=== PATIENT | male | born 1950 | race Hispanic/Latino ===

== ENCOUNTER 2020-07-30 12:52 | Emergency (ER) | payer OTHER ==
[2020-07-30] MEDS ORDERED: AZITHROMYCIN 250 MG TABLET PO ONE (13:04)
[2020-07-30] MEDS ORDERED: ACETAMINOPHEN WITH CODEINE 1 TAB TAB ONE (13:04)
[2020-07-30] MEDS ORDERED: CEFTRIAXONE 1G VIAL ONE (13:04)
[2020-07-30] MEDS ORDERED: ALBUTEROL INHALER 90MCG/INH IH ONE (13:04)
[2020-07-30 13:41] LABS: BASOPHILS % (AUTO) 0.3 % (0.0-5.0); EOSINOPHILS % (AUTO) 0.3 % (0.0-8.0); HEMATOCRIT 45.3 % (42-54); LYMPHOCYTES % (AUTO) 17.5 % (21.0-51.0); MEAN CORPUSCULAR HEMOGLOBIN 32.4 pg (27.0-33.0); MEAN CORPUSCULAR VOLUME 95.4 fL (79-99); MONOCYTES % (AUTO) 9.2 % (3.0-13.0); NEUTROPHILS % (AUTO) 72.3 % (40.0-77.0); PLATELET COUNT (AUTO) 181 K/uL (130-400); RED BLOOD CELL COUNT(AUTO) 4.75 MIL/uL (4.50-6.20); RED CELL DISTRIBUTION WIDTH 11.9 % (11.0-15.5); WHITE BLOOD COUNT (AUTO) 7.1 K/uL (4.8-10.8)
[2020-07-30 13:46] LABS: ABG BASE EXCESS 0.4 mmol/L (-2.0-3.0); ABG HCO3 25.4 mmol/L (21.0-28.0); ABG OXYGEN SATURATION 95.3 % (95.0-99.0); ABG PCO2 42 mmHg (35-48)
[2020-07-30 13:48] LABS: POTASSIUM 4.1 mmol/L (3.5-5.1)
[2020-07-30 13:51] LABS: INR 1.08 (0.85-1.15); PROTHROMBIN TIME 11.5 SEC (9.6-11.6)
[2020-07-30 13:53] LABS: ALBUMIN 3.8 g/dL (3.5-5.0); BILIRUBIN,TOTAL 0.2 mg/dL (0.2-1.0); PARTIAL THROMBOPLASTIN TIME 29.3 SEC (26.3-35.5); TOTAL PROTEIN, SERUM 7.4 g/dL (6.0-8.3)
[2020-07-30 14:18] LABS: B-TYPE NATRIURETIC PEPTIDE 92 pg/mL (0-100)
== END 2020-07-30 15:05 | disposition home or self-care (01) ==
LOC: EDH 12:52
DX: U07.1 COVID-19 (principal); Z72.0 Tobacco use
CPT/HCPCS: 36415; 36600; 71045; 80053; 82550; 82803; 83605; 83880; 84145; 84484; 85025; 85610; 85730; 87040 ×2; 87426; 93005; 96365; 99285; J0696

== ENCOUNTER 2020-08-05 13:03 | Inpatient (IN) | payer OTHER ==
[~2020-08-05] VITALS: Ht 172.7 cm; Wt 75.2 kg
[2020-08-05 13:47] LABS: ABG BASE EXCESS -1.3 mmol/L (-2.0-3.0); ABG HCO3 22.7 mmol/L (21.0-28.0); ABG OXYGEN SATURATION 97.1 % (95.0-99.0); ABG PCO2 36 mmHg (35-48)
[2020-08-05] MEDS ORDERED: CEFTRIAXONE 1G VIAL ONE (13:50)
[2020-08-05] MEDS ORDERED: DEXAMETHASONE SOD PHOSPHATE 10MG/ML 1ML VIAL ONE (13:50)
[2020-08-05] MEDS ORDERED: 0.9%NACL 1000ML 1,000 ML IV ONE (13:51)
[2020-08-05 13:58] LABS: BASOPHILS % (AUTO) 0.1 % (0.0-5.0); HEMATOCRIT 47.3 % (42-54); MEAN CORPUSCULAR HGB CONC 33.8 g/dL (32.0-36.0); MEAN CORPUSCULAR VOLUME 94.6 fL (79-99); MONOCYTES % (AUTO) 2.2 % (3.0-13.0); NEUTROPHILS % (AUTO) 92.1 % (40.0-77.0); PLATELET COUNT (AUTO) 165 K/uL (130-400); WHITE BLOOD COUNT (AUTO) 13.8 K/uL (4.8-10.8)
[2020-08-05 14:12] LABS: ALBUMIN 2.9 g/dL (3.5-5.0); BILIRUBIN,TOTAL 0.6 mg/dL (0.2-1.0); CREATININE 1.6 mg/dL (0.5-1.5); POTASSIUM 3.6 mmol/L (3.5-5.1); TOTAL PROTEIN, SERUM 7.7 g/dL (6.0-8.3)
[2020-08-05 14:51] LABS: B-TYPE NATRIURETIC PEPTIDE 706 pg/mL (0-100)
[2020-08-05 16:29] LABS: POTASSIUM 3.7 mmol/L (3.5-5.1)
[2020-08-05] MEDS ORDERED: IOHEXOL-350 75 ML VIAL IV ONE (16:55)
[2020-08-05] MEDS ORDERED: CEFTRIAXONE 1G VIAL IVP SCH (18:15)
[2020-08-05] MEDS ORDERED: DEXTROSE 50%-WATER 50 ML DISP.SYRIN IV PRN (18:15)
[2020-08-05] MEDS ORDERED: GLUCAGON 1MG KIT 1 MG ML IM PRN (18:15)
[2020-08-05] MEDS ORDERED: ASPIRIN 325 MG TABLET ONE (18:43)
[2020-08-05] MEDS: INSULIN R PO SS1 SQ SCH (21:00)
[2020-08-05] MEDS: FUROSEMIDE 20MG VIAL IVP SCH (21:00)
[2020-08-05] MEDS ORDERED: AZITHROMYCIN 500MG+NS 250ML 250 ML IV ONE (21:23)
[2020-08-05] MEDS ORDERED: INSULIN HUMULIN R 100 UNIT/ML 3ML ONE (22:03)
[2020-08-06] MEDS: INSULIN R PO SS1 SQ SCH ×4 (07:30→21:00)
[2020-08-06] MEDS ORDERED: FUROSEMIDE 20MG VIAL ONE ×2 (08:38→21:14)
[2020-08-06] MEDS: FUROSEMIDE 20MG VIAL IVP SCH ×2 (09:00→21:00)
[2020-08-06] MEDS: AZITHROMYCIN 500MG+NS 250ML 250 ML IV SCH (09:00)
[2020-08-06] MEDS: KCL 20 MEQ ERTAB PO SCH (12:30)
[2020-08-06] MEDS: CEFTRIAXONE 1G VIAL IVP SCH (13:00)
[2020-08-06] MEDS ORDERED: ALBUTEROL INHALER 90MCG/INH IH PRN (13:45)
[2020-08-06] MEDS ORDERED: ENOXAPARIN SODIUM 40 MG/0.4 ML SYRINGE SQ SCH (14:00)
[2020-08-06] MEDS ORDERED: POTASSIUM CHLORIDE 10% ELIXIR 20 MEQ/15 ML UDCUP ONE (17:07)
[2020-08-06] MEDS ORDERED: ENOXAPARIN SODIUM 40 MG/0.4 ML SYRINGE SQ ONE (17:08)
[2020-08-06] MEDS ORDERED: INSULIN HUMULIN R 100 UNIT/ML 3ML ONE (21:14)
[2020-08-07 04:54] LABS: HEMATOCRIT 37.6 % (42-54); MEAN CORPUSCULAR HEMOGLOBIN 29.8 pg (27.0-33.0); MEAN CORPUSCULAR VOLUME 87.6 fL (79-99); PLATELET COUNT (AUTO) 312 K/uL (130-400); RED BLOOD CELL COUNT(AUTO) 4.29 MIL/uL (4.50-6.20); WHITE BLOOD COUNT (AUTO) 5.7 K/uL (4.8-10.8)
[2020-08-07 05:22] LABS: CARBON DIOXIDE 25 mmol/L (21-32); CHLORIDE 106 mmol/L (101-111); CREATINE KINASE, TOTAL 76 U/L (21-232); CREATININE 1.1 mg/dL (0.5-1.5); GLOMERULAR FILTR. RATE CALC 70 mL/min (>60); GLUCOSE,RANDOM 89 mg/dL (70-105); MYOGLOBIN 50 ng/mL (10-92); PHOSPHORUS 3.2 mg/dL (2.5-4.9); POTASSIUM 3.9 mmol/L (3.5-5.1); SODIUM SERUM 140 mmol/L (136-145); TROPONIN I < 0.04 ng/mL (0.00-0.06); UREA NITROGEN, BLOOD 16 mg/dL (7-18)
[2020-08-07 06:08] LABS: BAND NEUTROPHILS % (MANUAL) 7 % (0-2); EOSINOPHILS % (MANUAL) 3 % (1-6); LYMPHOCYTES % (MANUAL) 34 % (22-44); MAN.DIFF COMMENT-IMPRESSION MANUAL DIFFERENTIAL; METAMYELOCYTES % 1 % (0-0); MONOCYTES % (MANUAL) 8 % (2-9); REACTIVE LYMPHOCYTES 3 % (0-0); SEGMENTED NEUTROPHILS % 44 % (40-70)
[2020-08-07 06:09] LABS: PLATELET MORPHOLOGY COMMENT ADEQUATE
[2020-08-07] MEDS: INSULIN R PO SS1 SQ SCH ×4 (07:30→21:00)
[2020-08-07] MEDS: FUROSEMIDE 20MG VIAL IVP SCH ×2 (09:00→21:00)
[2020-08-07] MEDS: DEXAMETHASONE 4 MG TAB PO SCH (09:00)
[2020-08-07] MEDS: AZITHROMYCIN 500MG+NS 250ML 250 ML IV SCH (09:00)
[2020-08-07] MEDS: ENOXAPARIN SODIUM 40 MG/0.4 ML SYRINGE SQ SCH (09:00)
[2020-08-07] MEDS ORDERED: DEXAMETHASONE 4 MG TAB ONE (09:03)
[2020-08-07] MEDS ORDERED: FUROSEMIDE 20MG VIAL ONE ×2 (09:03→20:55)
[2020-08-07] MEDS ORDERED: AZITHROMYCIN 500MG+NS 250ML 250 ML IV ONE (09:03)
[2020-08-07] MEDS ORDERED: POTASSIUM CHLORIDE 10% ELIXIR 20 MEQ/15 ML UDCUP ONE (09:03)
[2020-08-07] MEDS ORDERED: ENOXAPARIN SODIUM 40 MG/0.4 ML SYRINGE SQ ONE (09:03)
[2020-08-07] MEDS: KCL 20 MEQ ERTAB PO SCH (12:30)
[2020-08-07] MEDS: CEFTRIAXONE 1G VIAL IVP SCH (13:00)
[2020-08-07] MEDS ORDERED: CEFTRIAXONE 1G VIAL ONE (16:54)
[2020-08-07] MEDS ORDERED: INSULIN HUMULIN R 100 UNIT/ML 3ML ONE (21:01)
[2020-08-08 00:30] VITALS: BP 166/89
[2020-08-08 04:00] VITALS: BP 160/85
[2020-08-08] MEDS ORDERED: AMLODIPINE 5 MG TAB ONE (05:43)
[2020-08-08] MEDS ORDERED: AMLODIPINE 5 MG TAB PO SCH (05:45)
[2020-08-08] MEDS: AMLODIPINE 5 MG TAB PO SCH (05:59)
[2020-08-08] MEDS: INSULIN R PO SS1 SQ SCH ×4 (06:35→20:58)
[2020-08-08 09:03] VITALS: BP 139/76
[2020-08-08] MEDS: AZITHROMYCIN 500MG+NS 250ML 250 ML IV SCH (10:27)
[2020-08-08] MEDS: FUROSEMIDE 20MG VIAL IVP SCH ×2 (10:27→20:58)
[2020-08-08] MEDS: ENOXAPARIN SODIUM 40 MG/0.4 ML SYRINGE SQ SCH (10:28)
[2020-08-08] MEDS: DEXAMETHASONE 4 MG TAB PO SCH (10:28)
[2020-08-08 11:47] VITALS: BP 134/73
[2020-08-08] MEDS: CEFTRIAXONE 1G VIAL IVP SCH (12:34)
[2020-08-08] MEDS: KCL 20 MEQ ERTAB PO SCH (12:35)
[2020-08-08 15:36] VITALS: BP 144/86
[2020-08-08 20:08] VITALS: BP 141/85
[2020-08-08] MEDS: METOPROLOL TARTRATE 25 MG TAB PO SCH (20:57)
[2020-08-09] VITALS (7 sets, daily range): BP systolic 130–175; BP diastolic 77–89
[2020-08-09] MEDS: AMLODIPINE 5 MG TAB PO SCH (04:21)
[2020-08-09] MEDS: INSULIN R PO SS1 SQ SCH ×4 (06:05→20:21)
[2020-08-09] MEDS: AZITHROMYCIN 500MG+NS 250ML 250 ML IV SCH (09:47)
[2020-08-09] MEDS: FUROSEMIDE 20MG VIAL IVP SCH ×2 (09:47→20:16)
[2020-08-09] MEDS: METOPROLOL TARTRATE 25 MG TAB PO SCH ×2 (09:47→20:15)
[2020-08-09] MEDS: ENOXAPARIN SODIUM 40 MG/0.4 ML SYRINGE SQ SCH (09:48)
[2020-08-09] MEDS: DEXAMETHASONE 4 MG TAB PO SCH (09:48)
[2020-08-09] MEDS: CEFTRIAXONE 1G VIAL IVP SCH (12:14)
[2020-08-09] MEDS: KCL 20 MEQ ERTAB PO SCH (12:14)
[2020-08-10] VITALS: BP 127/72
[2020-08-10 03:55] VITALS: BP 140/86
[2020-08-10 04:32] LABS: HEMATOCRIT 44.2 % (42-54); MEAN CORPUSCULAR HEMOGLOBIN 31.8 pg (27.0-33.0); MEAN CORPUSCULAR HGB CONC 33.7 g/dL (32.0-36.0); MEAN CORPUSCULAR VOLUME 94.2 fL (79-99); PLATELET COUNT (AUTO) 179 K/uL (130-400); RED BLOOD CELL COUNT(AUTO) 4.69 MIL/uL (4.50-6.20); RED CELL DISTRIBUTION WIDTH 11.9 % (11.0-15.5); WHITE BLOOD COUNT (AUTO) 12.2 K/uL (4.8-10.8)
[2020-08-10 04:47] LABS: CREATININE 0.8 mg/dL (0.5-1.5); POTASSIUM 4.7 mmol/L (3.5-5.1)
[2020-08-10 05:19] LABS: BAND NEUTROPHILS % (MANUAL) 2 % (0-2); LYMPHOCYTES % (MANUAL) 2 % (22-44); MAN.DIFF COMMENT-IMPRESSION MANUAL DIFFERENTIAL; MONOCYTES % (MANUAL) 4 % (2-9); SEGMENTED NEUTROPHILS % 92 % (40-70)
[2020-08-10] MEDS: AMLODIPINE 5 MG TAB PO SCH (06:15)
[2020-08-10] MEDS: INSULIN R PO SS1 SQ SCH ×4 (06:15→20:45)
[2020-08-10 08:00] VITALS: BP 142/78
[2020-08-10] MEDS: AZITHROMYCIN 500MG+NS 250ML 250 ML IV SCH (09:41)
[2020-08-10] MEDS: FUROSEMIDE 20MG VIAL IVP SCH ×2 (09:45→20:31)
[2020-08-10] MEDS: DEXAMETHASONE 4 MG TAB PO SCH (09:50)
[2020-08-10] MEDS: METOPROLOL TARTRATE 25 MG TAB PO SCH ×2 (09:50→20:31)
[2020-08-10] MEDS: ENOXAPARIN SODIUM 40 MG/0.4 ML SYRINGE SQ SCH (09:51)
[2020-08-10 12:00] VITALS: BP 127/66
[2020-08-10] MEDS: KCL 20 MEQ ERTAB PO SCH (12:30)
[2020-08-10] MEDS: CEFTRIAXONE 1G VIAL IVP SCH (13:58)
[2020-08-10 16:00] VITALS: BP 136/78
[2020-08-10 20:00] VITALS: BP 123/69
[2020-08-11] VITALS (16 sets, daily range): BP systolic 117–154; BP diastolic 67–77
[2020-08-11] MEDS: AMLODIPINE 5 MG TAB PO SCH (05:52)
[2020-08-11] MEDS: INSULIN R PO SS1 SQ SCH ×4 (05:58→21:00)
[2020-08-11] MEDS: AZITHROMYCIN 500MG+NS 250ML 250 ML IV SCH (09:56)
[2020-08-11] MEDS: ENOXAPARIN SODIUM 40 MG/0.4 ML SYRINGE SQ SCH (09:56)
[2020-08-11] MEDS: DEXAMETHASONE 4 MG TAB PO SCH (09:57)
[2020-08-11] MEDS: FUROSEMIDE 20MG VIAL IVP SCH ×2 (09:57→21:55)
[2020-08-11] MEDS: METOPROLOL TARTRATE 25 MG TAB PO SCH ×2 (09:58→21:55)
[2020-08-11] MEDS: KCL 20 MEQ ERTAB PO SCH (12:27)
[2020-08-11] MEDS: CEFTRIAXONE 1G VIAL IVP SCH (16:34)
[2020-08-12] VITALS: BP 123/71
[2020-08-12 04:00] VITALS: BP 142/89
[2020-08-12] MEDS: AMLODIPINE 5 MG TAB PO SCH (06:12)
[2020-08-12] MEDS: INSULIN R PO SS1 SQ SCH ×4 (06:52→20:40)
[2020-08-12] MEDS: FUROSEMIDE 20MG VIAL IVP SCH ×2 (09:13→20:40)
[2020-08-12] MEDS: AZITHROMYCIN 500MG+NS 250ML 250 ML IV SCH (09:13)
[2020-08-12] MEDS: DEXAMETHASONE 4 MG TAB PO SCH (09:15)
[2020-08-12] MEDS: ENOXAPARIN SODIUM 40 MG/0.4 ML SYRINGE SQ SCH (09:16)
[2020-08-12] MEDS: METOPROLOL TARTRATE 25 MG TAB PO SCH ×2 (09:16→20:40)
[2020-08-12] MEDS ORDERED: FUROSEMIDE 40MG VIAL IV SCH (12:15)
[2020-08-12] MEDS ORDERED: IPRATROPIUM/ALBUTEROL SULFATE 3 ML SOLUTION IH PRN (13:00)
[2020-08-12] MEDS ORDERED: SOLU-MEDROL 125MG VIAL ONE (13:14)
[2020-08-12 13:29] LABS: HEMATOCRIT 45.3 % (42-54); MEAN CORPUSCULAR HEMOGLOBIN 31.5 pg (27.0-33.0); MEAN CORPUSCULAR HGB CONC 33.1 g/dL (32.0-36.0); MEAN CORPUSCULAR VOLUME 95.2 fL (79-99); RED BLOOD CELL COUNT(AUTO) 4.76 MIL/uL (4.50-6.20); WHITE BLOOD COUNT (AUTO) 12.2 K/uL (4.8-10.8)
[2020-08-12 13:43] LABS: CREATININE 0.9 mg/dL (0.5-1.5); MAGNESIUM 2.4 mg/dL (1.80-2.40); POTASSIUM 3.8 mmol/L (3.5-5.1)
[2020-08-12 14:14] LABS: ABG BASE EXCESS 0.4 mmol/L (-2.0-3.0); ABG HCO3 23.8 mmol/L (21.0-28.0); ABG PCO2 35 mmHg (35-48)
[2020-08-12 16:00] VITALS: BP 129/75
[2020-08-12] MEDS: KCL 20 MEQ ERTAB PO SCH (17:00)
[2020-08-12] MEDS: CEFTRIAXONE 1G VIAL IVP SCH (17:00)
[2020-08-12 19:00] VITALS: BP 132/78
[2020-08-12] MEDS: SOLU-MEDROL 125MG VIAL IVP SCH (20:40)
[2020-08-13] VITALS: BP 131/69
[2020-08-13 03:46] LABS: ABG HCO3 23.9 mmol/L (21.0-28.0); ABG OXYGEN SATURATION 94.6 % (95.0-99.0); ABG PCO2 37 mmHg (35-48)
[2020-08-13 04:00] VITALS: BP 135/70
[2020-08-13 05:59] LABS: BASOPHILS % (AUTO) 0.1 % (0.0-5.0); HEMATOCRIT 43.8 % (42-54); LYMPHOCYTES % (AUTO) 1.7 % (21.0-51.0); MEAN CORPUSCULAR HEMOGLOBIN 31.4 pg (27.0-33.0); MEAN CORPUSCULAR HGB CONC 33.8 g/dL (32.0-36.0); MONOCYTES % (AUTO) 2.2 % (3.0-13.0); NEUTROPHILS % (AUTO) 95.1 % (40.0-77.0); PLATELET COUNT (AUTO) 256 K/uL (130-400); RED BLOOD CELL COUNT(AUTO) 4.71 MIL/uL (4.50-6.20); RED CELL DISTRIBUTION WIDTH 11.8 % (11.0-15.5); WHITE BLOOD COUNT (AUTO) 15.5 K/uL (4.8-10.8)
[2020-08-13 06:04] LABS: POTASSIUM 4.1 mmol/L (3.5-5.1)
[2020-08-13] MEDS: INSULIN R PO SS1 SQ SCH ×4 (06:45→20:49)
[2020-08-13] MEDS: AZITHROMYCIN 500MG+NS 250ML 250 ML IV SCH (08:39)
[2020-08-13] MEDS: SOLU-MEDROL 125MG VIAL IVP SCH ×2 (08:41→20:32)
[2020-08-13] MEDS: FUROSEMIDE 20MG VIAL IVP SCH ×2 (08:41→20:32)
[2020-08-13] MEDS: PANTOPRAZOLE 40 MG/VIAL IVP SCH (08:41)
[2020-08-13] MEDS: ENOXAPARIN SODIUM 60 MG/0.6 ML SQ SCH (08:41)
[2020-08-13] MEDS: DEXAMETHASONE 4 MG TAB PO SCH (08:42)
[2020-08-13] MEDS: METOPROLOL TARTRATE 25 MG TAB PO SCH ×2 (08:42→20:32)
[2020-08-13 09:14] VITALS: BP 158/85
[2020-08-13 12:00] VITALS: BP 136/74
[2020-08-13] MEDS: KCL 20 MEQ ERTAB PO SCH (12:00)
[2020-08-13] MEDS: CEFTRIAXONE 1G VIAL IVP SCH (12:01)
[2020-08-13 17:24] VITALS: BP 152/89
[2020-08-13 19:00] VITALS: BP 142/79
[2020-08-14] VITALS: BP 137/77
[2020-08-14 03:34] LABS: ABG BASE EXCESS 1.7 mmol/L (-2.0-3.0); ABG HCO3 26.8 mmol/L (21.0-28.0); ABG OXYGEN SATURATION 94.7 % (95.0-99.0); ABG PCO2 44 mmHg (35-48)
[2020-08-14 04:00] VITALS: BP 143/75
[2020-08-14 04:20] LABS: BASOPHILS % (AUTO) 0.1 % (0.0-5.0); HEMATOCRIT 45.3 % (42-54); LYMPHOCYTES % (AUTO) 1.5 % (21.0-51.0); MEAN CORPUSCULAR HEMOGLOBIN 31.4 pg (27.0-33.0); MEAN CORPUSCULAR HGB CONC 33.6 g/dL (32.0-36.0); MEAN CORPUSCULAR VOLUME 93.6 fL (79-99); MONOCYTES % (AUTO) 1.6 % (3.0-13.0); NEUTROPHILS % (AUTO) 96.1 % (40.0-77.0); PLATELET COUNT (AUTO) 266 K/uL (130-400); RED BLOOD CELL COUNT(AUTO) 4.84 MIL/uL (4.50-6.20); RED CELL DISTRIBUTION WIDTH 11.8 % (11.0-15.5); WHITE BLOOD COUNT (AUTO) 22.1 K/uL (4.8-10.8)
[2020-08-14 04:36] LABS: ALBUMIN 2.4 g/dL (3.5-5.0); BILIRUBIN,TOTAL 0.4 mg/dL (0.2-1.0); CREATININE 0.9 mg/dL (0.5-1.5); POTASSIUM 4.4 mmol/L (3.5-5.1); TOTAL PROTEIN, SERUM 7.1 g/dL (6.0-8.3)
[2020-08-14] MEDS: INSULIN R PO SS1 SQ SCH ×5 (06:48→20:16)
[2020-08-14] MEDS: SOLU-MEDROL 125MG VIAL IVP SCH ×3 (08:22→20:08)
[2020-08-14] MEDS: AZITHROMYCIN 500MG+NS 250ML 250 ML IV SCH (08:22)
[2020-08-14] MEDS: METOPROLOL TARTRATE 25 MG TAB PO SCH ×2 (08:22→20:06)
[2020-08-14] MEDS: FUROSEMIDE 20MG VIAL IVP SCH ×2 (08:24→20:07)
[2020-08-14] MEDS: PANTOPRAZOLE 40 MG/VIAL IVP SCH (08:25)
[2020-08-14] MEDS: ENOXAPARIN SODIUM 60 MG/0.6 ML SQ SCH (08:26)
[2020-08-14 08:27] VITALS: BP 150/80
[2020-08-14 12:47] VITALS: BP 141/78
[2020-08-14] MEDS: KCL 20 MEQ ERTAB PO SCH (12:56)
[2020-08-14 18:19] VITALS: BP 146/75
[2020-08-15] VITALS: BP 151/72
[2020-08-15 04:00] VITALS: BP 168/74
[2020-08-15] MEDS: INSULIN R PO SS1 SQ SCH ×4 (05:34→20:52)
[2020-08-15] MEDS: SOLU-MEDROL 125MG VIAL IVP SCH ×4 (05:35→20:52)
[2020-08-15 06:21] LABS: BASOPHILS % (AUTO) 0.1 % (0.0-5.0); HEMATOCRIT 44.5 % (42-54); LYMPHOCYTES % (AUTO) 1.5 % (21.0-51.0); MEAN CORPUSCULAR HEMOGLOBIN 31.1 pg (27.0-33.0); MEAN CORPUSCULAR HGB CONC 33.7 g/dL (32.0-36.0); MEAN CORPUSCULAR VOLUME 92.3 fL (79-99); MONOCYTES % (AUTO) 2.7 % (3.0-13.0); PLATELET COUNT (AUTO) 256 K/uL (130-400); RED BLOOD CELL COUNT(AUTO) 4.82 MIL/uL (4.50-6.20); RED CELL DISTRIBUTION WIDTH 11.7 % (11.0-15.5); WHITE BLOOD COUNT (AUTO) 21.5 K/uL (4.8-10.8)
[2020-08-15 06:43] LABS: ALBUMIN 2.4 g/dL (3.5-5.0); BILIRUBIN,TOTAL 0.4 mg/dL (0.2-1.0); CREATININE 0.8 mg/dL (0.5-1.5); MAGNESIUM 2.4 mg/dL (1.80-2.40); POTASSIUM 4.2 mmol/L (3.5-5.1); TOTAL PROTEIN, SERUM 6.6 g/dL (6.0-8.3)
[2020-08-15 07:30] VITALS: BP 145/77
[2020-08-15] MEDS: PANTOPRAZOLE 40 MG TAB DR PO SCH (09:30)
[2020-08-15] MEDS: FUROSEMIDE 20MG VIAL IVP SCH ×2 (09:30→20:52)
[2020-08-15] MEDS: METOPROLOL TARTRATE 25 MG TAB PO SCH ×2 (09:30→20:52)
[2020-08-15] MEDS: ENOXAPARIN SODIUM 60 MG/0.6 ML SQ SCH (09:32)
[2020-08-15 11:00] VITALS: BP 148/80
[2020-08-15] MEDS: KCL 20 MEQ ERTAB PO SCH (11:52)
[2020-08-15 16:00] VITALS: BP 151/76
[2020-08-15 20:35] VITALS: BP 119/71
[2020-08-15] MEDS ORDERED: LACTULOSE 20 GM/30 ML UDCUP PO SCH (21:00)
[2020-08-16 00:13] VITALS: BP 124/74
[2020-08-16] MEDS: SOLU-MEDROL 125MG VIAL IVP SCH ×4 (02:10→20:33)
[2020-08-16 04:31] VITALS: BP 152/79
[2020-08-16 05:11] LABS: BASOPHILS % (AUTO) 0.1 % (0.0-5.0); LYMPHOCYTES % (AUTO) 1.4 % (21.0-51.0); MEAN CORPUSCULAR HEMOGLOBIN 30.8 pg (27.0-33.0); MEAN CORPUSCULAR HGB CONC 33.6 g/dL (32.0-36.0); MEAN CORPUSCULAR VOLUME 91.8 fL (79-99); MONOCYTES % (AUTO) 1.7 % (3.0-13.0); NEUTROPHILS % (AUTO) 96.3 % (40.0-77.0); PLATELET COUNT (AUTO) 239 K/uL (130-400); RED CELL DISTRIBUTION WIDTH 11.8 % (11.0-15.5); WHITE BLOOD COUNT (AUTO) 17.2 K/uL (4.8-10.8)
[2020-08-16 05:29] LABS: ALBUMIN 2.4 g/dL (3.5-5.0); BILIRUBIN,TOTAL 0.4 mg/dL (0.2-1.0); CREATININE 0.9 mg/dL (0.5-1.5); POTASSIUM 4.2 mmol/L (3.5-5.1); TOTAL PROTEIN, SERUM 6.7 g/dL (6.0-8.3)
[2020-08-16] MEDS: INSULIN R PO SS1 SQ SCH ×4 (06:30→20:02)
[2020-08-16] MEDS: METOPROLOL TARTRATE 25 MG TAB PO SCH ×2 (09:59→20:33)
[2020-08-16] MEDS: PANTOPRAZOLE 40 MG TAB DR PO SCH (09:59)
[2020-08-16] MEDS: FUROSEMIDE 20MG VIAL IVP SCH ×2 (10:00→20:33)
[2020-08-16] MEDS: ENOXAPARIN SODIUM 60 MG/0.6 ML SQ SCH (10:00)
[2020-08-16 11:31] VITALS: BP 148/88
[2020-08-16] MEDS: KCL 20 MEQ ERTAB PO SCH (12:30)
[2020-08-16 19:25] VITALS: BP 122/82
[2020-08-17 00:01] VITALS: BP 136/78
[2020-08-17] MEDS: SOLU-MEDROL 125MG VIAL IVP SCH ×4 (02:50→21:22)
[2020-08-17 04:14] VITALS: BP 142/80
[2020-08-17] MEDS: INSULIN R PO SS1 SQ SCH ×4 (06:03→21:27)
[2020-08-17 06:21] LABS: BASOPHILS % (AUTO) 0.1 % (0.0-5.0); HEMATOCRIT 48.9 % (42-54); LYMPHOCYTES % (AUTO) 1.5 % (21.0-51.0); MEAN CORPUSCULAR HEMOGLOBIN 31.3 pg (27.0-33.0); MEAN CORPUSCULAR HGB CONC 33.7 g/dL (32.0-36.0); MEAN CORPUSCULAR VOLUME 92.6 fL (79-99); MONOCYTES % (AUTO) 1.3 % (3.0-13.0); NEUTROPHILS % (AUTO) 96.5 % (40.0-77.0); PLATELET COUNT (AUTO) 256 K/uL (130-400); RED BLOOD CELL COUNT(AUTO) 5.28 MIL/uL (4.50-6.20); RED CELL DISTRIBUTION WIDTH 11.8 % (11.0-15.5); WHITE BLOOD COUNT (AUTO) 18.4 K/uL (4.8-10.8)
[2020-08-17 06:46] LABS: ALBUMIN 2.5 g/dL (3.5-5.0); BILIRUBIN,TOTAL 0.5 mg/dL (0.2-1.0); CREATININE 0.9 mg/dL (0.5-1.5); POTASSIUM 4.6 mmol/L (3.5-5.1); TOTAL PROTEIN, SERUM 6.7 g/dL (6.0-8.3)
[2020-08-17 08:38] VITALS: BP 152/85
[2020-08-17] MEDS: FUROSEMIDE 20MG VIAL IVP SCH ×2 (08:45→21:22)
[2020-08-17] MEDS: PANTOPRAZOLE 40 MG TAB DR PO SCH (08:45)
[2020-08-17] MEDS: METOPROLOL TARTRATE 25 MG TAB PO SCH ×2 (08:45→21:23)
[2020-08-17] MEDS: ENOXAPARIN SODIUM 60 MG/0.6 ML SQ SCH (08:46)
[2020-08-17 12:00] VITALS: BP 162/97
[2020-08-17] MEDS: KCL 20 MEQ ERTAB PO SCH (13:21)
[2020-08-17 16:00] VITALS: BP 157/86
[2020-08-17 20:21] VITALS: BP 166/79
[2020-08-18 00:15] VITALS: BP 130/68
[2020-08-18] MEDS: SOLU-MEDROL 125MG VIAL IVP SCH ×4 (03:21→19:54)
[2020-08-18 04:18] VITALS: BP 133/71
[2020-08-18 05:12] LABS: ABG BASE EXCESS 4.8 mmol/L (-2.0-3.0); ABG HCO3 28.9 mmol/L (21.0-28.0); ABG OXYGEN SATURATION 84.7 % (95.0-99.0); ABG PCO2 41 mmHg (35-48)
[2020-08-18 05:39] LABS: BASOPHILS % (AUTO) 0.1 % (0.0-5.0); HEMATOCRIT 47.6 % (42-54); LYMPHOCYTES % (AUTO) 1.3 % (21.0-51.0); MEAN CORPUSCULAR HEMOGLOBIN 31.7 pg (27.0-33.0); MEAN CORPUSCULAR HGB CONC 34.5 g/dL (32.0-36.0); MEAN CORPUSCULAR VOLUME 91.9 fL (79-99); MONOCYTES % (AUTO) 1.6 % (3.0-13.0); NEUTROPHILS % (AUTO) 96.3 % (40.0-77.0); PLATELET COUNT (AUTO) 250 K/uL (130-400); RED BLOOD CELL COUNT(AUTO) 5.18 MIL/uL (4.50-6.20); RED CELL DISTRIBUTION WIDTH 11.7 % (11.0-15.5); WHITE BLOOD COUNT (AUTO) 21.1 K/uL (4.8-10.8)
[2020-08-18 06:00] LABS: ALBUMIN 2.5 g/dL (3.5-5.0); BILIRUBIN,TOTAL 0.5 mg/dL (0.2-1.0); CREATININE 0.9 mg/dL (0.5-1.5); POTASSIUM 4.5 mmol/L (3.5-5.1); TOTAL PROTEIN, SERUM 6.6 g/dL (6.0-8.3)
[2020-08-18] MEDS: INSULIN R PO SS1 SQ SCH ×4 (07:30→20:04)
[2020-08-18 08:00] VITALS: BP_SYST 144; BP_SYST 147; BP_DIAS 76; BP_DIAS 80
[2020-08-18] MEDS: ENOXAPARIN SODIUM 60 MG/0.6 ML SQ SCH (09:29)
[2020-08-18] MEDS: FUROSEMIDE 20MG VIAL IVP SCH ×2 (09:29→19:55)
[2020-08-18] MEDS: METOPROLOL TARTRATE 25 MG TAB PO SCH ×2 (09:30→19:55)
[2020-08-18] MEDS: PANTOPRAZOLE 40 MG TAB DR PO SCH (09:30)
[2020-08-18 12:00] VITALS: BP 144/76
[2020-08-18] MEDS: KCL 20 MEQ ERTAB PO SCH (13:03)
[2020-08-18 16:00] VITALS: BP 159/75
[2020-08-18 20:15] VITALS: BP 121/71
[2020-08-19 00:12] VITALS: BP 120/76
[2020-08-19 04:11] VITALS: BP 127/79
[2020-08-19] MEDS: SOLU-MEDROL 125MG VIAL IVP SCH ×4 (04:48→20:14)
[2020-08-19] MEDS: INSULIN R PO SS1 SQ SCH ×4 (05:53→20:56)
[2020-08-19 08:00] VITALS: BP 134/77
[2020-08-19] MEDS: METOPROLOL TARTRATE 25 MG TAB PO SCH ×2 (09:30→20:14)
[2020-08-19] MEDS: FUROSEMIDE 20MG VIAL IVP SCH ×2 (09:30→20:14)
[2020-08-19] MEDS: PANTOPRAZOLE 40 MG TAB DR PO SCH (09:30)
[2020-08-19] MEDS: ENOXAPARIN SODIUM 60 MG/0.6 ML SQ SCH (09:32)
[2020-08-19] MEDS: KCL 20 MEQ ERTAB PO SCH (11:32)
[2020-08-19 12:00] VITALS: BP 137/72
[2020-08-19 17:30] VITALS: BP 137/70
[2020-08-19 20:00] VITALS: BP 125/77
[2020-08-20] VITALS: BP 123/78
[2020-08-20] MEDS: SOLU-MEDROL 125MG VIAL IVP SCH ×4 (02:31→20:45)
[2020-08-20 04:00] VITALS: BP 144/68
[2020-08-20] MEDS: INSULIN R PO SS1 SQ SCH ×4 (05:59→20:58)
[2020-08-20 06:44] LABS: BASOPHILS % (AUTO) 0.1 % (0.0-5.0); HEMATOCRIT 49.1 % (42-54); LYMPHOCYTES % (AUTO) 2.2 % (21.0-51.0); MEAN CORPUSCULAR HEMOGLOBIN 31.5 pg (27.0-33.0); MEAN CORPUSCULAR HGB CONC 34.4 g/dL (32.0-36.0); MEAN CORPUSCULAR VOLUME 91.6 fL (79-99); MONOCYTES % (AUTO) 1.9 % (3.0-13.0); NEUTROPHILS % (AUTO) 95.1 % (40.0-77.0); PLATELET COUNT (AUTO) 223 K/uL (130-400); RED BLOOD CELL COUNT(AUTO) 5.36 MIL/uL (4.50-6.20); RED CELL DISTRIBUTION WIDTH 11.6 % (11.0-15.5); WHITE BLOOD COUNT (AUTO) 20.2 K/uL (4.8-10.8)
[2020-08-20 06:59] LABS: CREATININE 0.9 mg/dL (0.5-1.5); PHOSPHORUS 3.8 mg/dL (2.5-4.9); POTASSIUM 4.5 mmol/L (3.5-5.1)
[2020-08-20 08:08] VITALS: BP 154/67
[2020-08-20] MEDS: METOPROLOL TARTRATE 25 MG TAB PO SCH ×2 (09:44→21:00)
[2020-08-20] MEDS: PANTOPRAZOLE 40 MG TAB DR PO SCH (09:44)
[2020-08-20] MEDS: FUROSEMIDE 20MG VIAL IVP SCH ×2 (09:47→20:45)
[2020-08-20] MEDS: ENOXAPARIN SODIUM 60 MG/0.6 ML SQ SCH (09:48)
[2020-08-20] MEDS: KCL 20 MEQ ERTAB PO SCH (11:36)
[2020-08-20 16:00] VITALS: BP 144/72
[2020-08-20 20:25] VITALS: BP 129/73
[2020-08-21 00:19] VITALS: BP 142/79
[2020-08-21] MEDS: SOLU-MEDROL 125MG VIAL IVP SCH ×4 (03:11→21:36)
[2020-08-21 04:26] VITALS: BP 163/85
[2020-08-21] MEDS: INSULIN R PO SS1 SQ SCH ×4 (06:40→21:39)
[2020-08-21 09:04] VITALS: BP 129/73
[2020-08-21] MEDS: METOPROLOL TARTRATE 25 MG TAB PO SCH ×2 (09:44→21:36)
[2020-08-21] MEDS: FUROSEMIDE 20MG VIAL IVP SCH ×2 (09:44→21:36)
[2020-08-21] MEDS: ENOXAPARIN SODIUM 60 MG/0.6 ML SQ SCH (09:44)
[2020-08-21] MEDS: PANTOPRAZOLE 40 MG TAB DR PO SCH (09:44)
[2020-08-21 12:00] VITALS: BP 158/88
[2020-08-21] MEDS: KCL 20 MEQ ERTAB PO SCH (12:57)
[2020-08-21 17:18] VITALS: BP 139/85
[2020-08-21 20:13] VITALS: BP 123/70
[2020-08-22 00:25] VITALS: BP 128/72
[2020-08-22] MEDS: SOLU-MEDROL 125MG VIAL IVP SCH ×4 (03:00→20:52)
[2020-08-22 04:52] VITALS: BP 138/79
[2020-08-22] MEDS: INSULIN R PO SS1 SQ SCH ×4 (05:56→20:59)
[2020-08-22 08:00] VITALS: BP 136/79
[2020-08-22] MEDS: ENOXAPARIN SODIUM 60 MG/0.6 ML SQ SCH (09:03)
[2020-08-22] MEDS: FUROSEMIDE 20MG VIAL IVP SCH ×2 (09:04→20:51)
[2020-08-22] MEDS: METOPROLOL TARTRATE 25 MG TAB PO SCH ×2 (09:04→20:51)
[2020-08-22] MEDS: PANTOPRAZOLE 40 MG TAB DR PO SCH (09:04)
[2020-08-22 12:00] VITALS: BP 140/80
[2020-08-22] MEDS: KCL 20 MEQ ERTAB PO SCH (12:42)
[2020-08-22 16:00] VITALS: BP 126/76
[2020-08-22 20:22] VITALS: BP 147/71
[2020-08-23 00:19] VITALS: BP 135/79
[2020-08-23 04:44] VITALS: BP 122/74
[2020-08-23] MEDS: INSULIN R PO SS1 SQ SCH ×4 (05:50→20:18)
[2020-08-23] MEDS: SOLU-MEDROL 125MG VIAL IVP SCH ×3 (05:56→19:46)
[2020-08-23 08:00] VITALS: BP 158/85
[2020-08-23] MEDS: FUROSEMIDE 20MG VIAL IVP SCH ×2 (09:34→19:47)
[2020-08-23] MEDS: METOPROLOL TARTRATE 25 MG TAB PO SCH ×2 (09:34→19:47)
[2020-08-23] MEDS: PANTOPRAZOLE 40 MG TAB DR PO SCH (09:34)
[2020-08-23] MEDS: ENOXAPARIN SODIUM 60 MG/0.6 ML SQ SCH (09:36)
[2020-08-23 12:00] VITALS: BP 133/79
[2020-08-23 13:54] LABS: HEMATOCRIT 50.9 % (42-54); MEAN CORPUSCULAR HEMOGLOBIN 31.2 pg (27.0-33.0); MEAN CORPUSCULAR HGB CONC 33.8 g/dL (32.0-36.0); MEAN CORPUSCULAR VOLUME 92.4 fL (79-99); RED BLOOD CELL COUNT(AUTO) 5.51 MIL/uL (4.50-6.20); RED CELL DISTRIBUTION WIDTH 11.8 % (11.0-15.5); WHITE BLOOD COUNT (AUTO) 20.1 K/uL (4.8-10.8)
[2020-08-23] MEDS: KCL 20 MEQ ERTAB PO SCH (14:00)
[2020-08-23 14:05] LABS: CREATININE 1.2 mg/dL (0.5-1.5); POTASSIUM 4.6 mmol/L (3.5-5.1)
[2020-08-23 16:45] VITALS: BP 146/90
[2020-08-23 20:34] VITALS: BP 139/73
[2020-08-24 00:07] VITALS: BP 136/76
[2020-08-24 04:06] LABS: ABG BASE EXCESS 1.6 mmol/L (-2.0-3.0); ABG HCO3 25.5 mmol/L (21.0-28.0); ABG OXYGEN SATURATION 89.3 % (95.0-99.0); ABG PCO2 38 mmHg (35-48)
[2020-08-24 04:29] VITALS: BP 156/78
[2020-08-24] MEDS: INSULIN R PO SS1 SQ SCH ×4 (05:26→20:41)
[2020-08-24] MEDS: SOLU-MEDROL 125MG VIAL IVP SCH ×3 (05:32→20:37)
[2020-08-24 05:58] LABS: HEMATOCRIT 50.8 % (42-54); MEAN CORPUSCULAR HEMOGLOBIN 31.6 pg (27.0-33.0); MEAN CORPUSCULAR HGB CONC 34.4 g/dL (32.0-36.0); MEAN CORPUSCULAR VOLUME 91.7 fL (79-99); RED BLOOD CELL COUNT(AUTO) 5.54 MIL/uL (4.50-6.20); RED CELL DISTRIBUTION WIDTH 11.8 % (11.0-15.5); WHITE BLOOD COUNT (AUTO) 19.3 K/uL (4.8-10.8)
[2020-08-24 06:07] LABS: CREATININE 1.1 mg/dL (0.5-1.5); MAGNESIUM 2.7 mg/dL (1.80-2.40); POTASSIUM 4.6 mmol/L (3.5-5.1)
[2020-08-24 08:10] VITALS: BP 110/69
[2020-08-24] MEDS: PANTOPRAZOLE 40 MG TAB DR PO SCH (08:49)
[2020-08-24] MEDS: FUROSEMIDE 20MG VIAL IVP SCH ×2 (08:49→20:38)
[2020-08-24] MEDS: METOPROLOL TARTRATE 25 MG TAB PO SCH ×2 (08:49→20:38)
[2020-08-24] MEDS: ENOXAPARIN SODIUM 60 MG/0.6 ML SQ SCH (08:50)
[2020-08-24] MEDS: KCL 20 MEQ ERTAB PO SCH (12:30)
[2020-08-24 12:52] VITALS: BP 107/58
[2020-08-24 20:17] VITALS: BP 149/84
[2020-08-25 00:16] VITALS: BP 116/74
[2020-08-25 04:37] VITALS: BP 138/77
[2020-08-25] MEDS: SOLU-MEDROL 125MG VIAL IVP SCH (05:57)
[2020-08-25] MEDS: INSULIN R PO SS1 SQ SCH ×4 (05:59→19:56)
[2020-08-25 06:30] LABS: MEAN CORPUSCULAR HEMOGLOBIN 31.1 pg (27.0-33.0); MEAN CORPUSCULAR HGB CONC 34.5 g/dL (32.0-36.0); MEAN CORPUSCULAR VOLUME 90.1 fL (79-99); PLATELET COUNT (AUTO) 129 K/uL (130-400); RED BLOOD CELL COUNT(AUTO) 5.44 MIL/uL (4.50-6.20); RED CELL DISTRIBUTION WIDTH 11.7 % (11.0-15.5); WHITE BLOOD COUNT (AUTO) 17.2 K/uL (4.8-10.8)
[2020-08-25 06:43] LABS: CREATININE 1.1 mg/dL (0.5-1.5); POTASSIUM 3.9 mmol/L (3.5-5.1)
[2020-08-25 07:49] LABS: BAND NEUTROPHILS % (MANUAL) 1 % (0-2); LYMPHOCYTES % (MANUAL) 4 % (22-44); MAN.DIFF COMMENT-IMPRESSION MANUAL DIFFERENTIAL; MONOCYTES % (MANUAL) 3 % (2-9); SEGMENTED NEUTROPHILS % 92 % (40-70)
[2020-08-25 07:50] LABS: PLATELET MORPHOLOGY COMMENT SLIGHTLY DECREASED
[2020-08-25] MEDS: PANTOPRAZOLE 40 MG TAB DR PO SCH (08:50)
[2020-08-25] MEDS: METOPROLOL TARTRATE 25 MG TAB PO SCH ×2 (08:52→20:03)
[2020-08-25] MEDS: ENOXAPARIN SODIUM 60 MG/0.6 ML SQ SCH (08:52)
[2020-08-25] MEDS: FUROSEMIDE 20MG VIAL IVP SCH (08:54)
[2020-08-25 09:16] VITALS: BP 150/85
[2020-08-25] MEDS: KCL 20 MEQ ERTAB PO SCH (12:18)
[2020-08-25 12:38] VITALS: BP 135/72
[2020-08-25 16:43] VITALS: BP 133/81
[2020-08-25] MEDS: FUROSEMIDE 20 MG TABLET PO SCH (17:11)
[2020-08-25 20:07] VITALS: BP 133/82
[2020-08-26] VITALS: BP 109/65
[2020-08-26 04:06] LABS: HEMATOCRIT 50.3 % (42-54); MEAN CORPUSCULAR HEMOGLOBIN 30.9 pg (27.0-33.0); MEAN CORPUSCULAR VOLUME 90.8 fL (79-99); RED BLOOD CELL COUNT(AUTO) 5.54 MIL/uL (4.50-6.20); RED CELL DISTRIBUTION WIDTH 11.6 % (11.0-15.5); WHITE BLOOD COUNT (AUTO) 17.1 K/uL (4.8-10.8)
[2020-08-26 04:27] VITALS: BP 131/68
[2020-08-26 04:27] LABS: CREATININE 1.1 mg/dL (0.5-1.5); MAGNESIUM 2.5 mg/dL (1.80-2.40); POTASSIUM 3.8 mmol/L (3.5-5.1)
[2020-08-26] MEDS: INSULIN R PO SS1 SQ SCH ×3 (06:08→16:29)
[2020-08-26 08:37] VITALS: BP 112/65
[2020-08-26] MEDS ORDERED: DEXAMETHASONE 4 MG TAB PO SCH (09:00)
[2020-08-26] MEDS ORDERED: LEVOFLOXACIN 500 MG TABLET PO SCH (09:00)
[2020-08-26] MEDS ORDERED: DEXA4 PO (09:26)
[2020-08-26] MEDS: PANTOPRAZOLE 40 MG TAB DR PO SCH (09:56)
[2020-08-26] MEDS: METOPROLOL TARTRATE 25 MG TAB PO SCH (09:57)
[2020-08-26] MEDS: FUROSEMIDE 20 MG TABLET PO SCH ×2 (09:57→16:43)
[2020-08-26] MEDS: ENOXAPARIN SODIUM 60 MG/0.6 ML SQ SCH (09:58)
[2020-08-26] MEDS: KCL 20 MEQ ERTAB PO SCH (13:14)
[2020-08-26 13:16] VITALS: BP 94/64
[2020-08-26 16:04] VITALS: BP 126/81
== END 2020-08-26 17:23 | DRG 177 ==
LOC: EDH 13:03 → EDHIP 16:28 → 4AH 08-08 01:00
PROVIDERS: ADMIT Internal Medicine Nephrology; ATTEND Internal Medicine Nephrology
PROC: 5A09357 Assistance with Respiratory Ventilation, Less than 24 Consecutive Hours, Continuous Positive Airway Pressure (ICD-10-PCS; 2020-08-12)
PROC: 5A0935A Assistance with Respiratory Ventilation, Less than 24 Consecutive Hours, High Flow/Velocity Cannula (ICD-10-PCS; 2020-08-16)
PROC: 5A09457 Assistance with Respiratory Ventilation, 24-96 Consecutive Hours, Continuous Positive Airway Pressure (ICD-10-PCS; principal; 2020-08-17)
PROC: 5A0935A Assistance with Respiratory Ventilation, Less than 24 Consecutive Hours, High Flow/Velocity Cannula (ICD-10-PCS; 2020-08-17)
DX: U07.1 COVID-19 (principal); J12.82 Pneumonia due to coronavirus disease 2019; J96.01 Acute respiratory failure with hypoxia; I42.9 Cardiomyopathy, unspecified; I10 Essential (primary) hypertension; E11.9 Type 2 diabetes mellitus without complications; I25.10 Atherosclerotic heart disease of native coronary artery without angina pectoris; N28.9 Disorder of kidney and ureter, unspecified; T38.0X5A Adverse effect of glucocorticoids and synthetic analogues, initial encounter; Z87.01 Personal history of pneumonia (recurrent); Y92.89 Other specified places as the place of occurrence of the external cause
CPT/HCPCS: 36415; 36600; 71045; 71275; 80048; 80053; 82550; 82803; 82948; 83615; 83735; 83874; 83880; 84100; 84145; 84484; 85025; 85027; 85378; 86140; 87040; 87426; 87804; 93306; 93970; 94660; 97039; C9113; G0378; J0456; J0696; J1100; J1650; J1815; J1940; J2930; J7030; J8540; Q9967; U0003